=== PATIENT | female | born 2000 | race Asian ===

== ENCOUNTER 2018-03-06 00:26 | Emergency (ER) | payer BC ==
[2018-03-06] MEDS ORDERED: Famotidine TAB* 20 MG PO ONE (00:50)
[2018-03-06] MEDS ORDERED: Lidocaine 2% VISCOUS* 15 ML UDC PO ONE (00:50)
[2018-03-06] MEDS ORDERED: Al Hydrox/Mg Hydrox/Simet LIQ* 30 ML UDC PO ONE (00:50)
--- NOTE | 2018-03-06 00:50 | ED ---
Abdominal Pain/Female - HPI Summary HPI Summary: Pt is a 17 y/o F presenting to the ED with a chief complaint of sharp, constant LUQ pain right under her ribs onset around 2230 that worsens with deep breath, movement, and laughing. She states the pain was at an 8/10 and is now at 6/10, has not taken anything for it. She reports mild sob. Pt denies chest pain, coughing, headache, dizziness, bodyache, fever, nausea, vomiting, or recent illness. She came back to [place] from [place] via airplane on 02/25/18. Her last BM was today and it was normal. - History of Current Complaint Chief Complaint: EDShortnessOfBreath Stated Complaint: SOB Time Seen by Provider: 03/06/18 00:40 Hx Obtained From: Patient Hx Last Menstrual Period: 03/06/2018 ?: No - not on bc Onset/Duration: Sudden Onset, Lasting Hours, Still Present Timing: Constant Severity Initially: Moderate Severity Currently: Moderate Pain Intensity: 6 Pain Scale Used: 0-10 Numeric Location: Discrete At: LUQ Radiates: No Character: Sharp Aggravating Factor(s): Movement, Deep Breaths Alleviating Factor(s): Nothing Associated Signs and Symptoms: Negative: Fever, Cough, Chest Pain, Constipation , Urinary Symptoms, Nausea, Vomiting, Diarrhea Allergies/Adverse Reactions: Allergies Allergy/AdvReac Type Severity Reaction Status Date / Time No Known Allergies Allergy Verified 03/06/18 00:31 PMH/Surg Hx/FS Hx/Imm Hx Previously Healthy: Yes Endocrine/Hematology History: Denies: Hx Diabetes Respiratory History: Denies: Hx Asthma, Hx Chronic Obstructive Pulmonary Disease (COPD) Infectious Disease History: No Infectious Disease History: Denies: Traveled Outside the [place] in Last 30 Days - Family History Known Family History: Positive: Other - HLD Negative: Hypertension, Respiratory Disease - Social History Occupation: Student Lives: Dormitory/Roommates Alcohol Use: None Hx Substance Use: No Substance Use Type: Reports: None Hx Tobacco Use: No Smoking Status (MU): Never Smoked Tobacco Review of Systems Negative: Fever Negative: Chest Pain Positive: Shortness Of Breath. Negative: Cough Positive: Abdominal Pain. Negative: Vomiting, Nausea All Other Systems Reviewed And Are Negative: Yes Physical Exam - Summary Physical Exam Summary: Appearance: Well appearing, no pain distress Skin: warm, dry, reflects adequate perfusion Head/face: normal Eyes: EOMI, JOSESITO ENT: mucous membranes moist Neck: supple, non-tender Respiratory: CTA, breath sounds present Cardiovascular: RRR, pulses symmetrical Abdomen: mild LUQ discomfort Bowel Sounds: present Musculoskeletal: normal, strength/ROM intact Neuro: normal, sensory motor intact, A&Ox3 Triage Information Reviewed: Yes Vital Signs On Initial Exam: Initial Vitals Temp Pulse Resp BP Pulse Ox 97.7 F 68 16 132/81 97 03/06/18 00:28 03/06/18 00:28 03/06/18 00:28 03/06/18 00:03/06/18 00:28 Vital Signs Reviewed: Yes Diagnostics - Vital Signs Vital Signs Temp Pulse Resp BP Pulse Ox 03/06/18 00: 97.7 F 68 16 132/81 97 - Laboratory Lab Statement: Any lab studies that have been ordered have been reviewed, and results considered in the medical decision making process. - Radiology Abd x-ray Radiology Interpretation Completed By: ED Physician Summary of Radiographic Findings: Consistent with constipation. Pending official radiology report. Abdominal Pain Fem Course/Dx - Course Course Of Treatment: Nurse's notes reviewed. Patient with left upper quadrant discomfort not responding to GI therapy. X-ray was performed and patient had significant findings of constipation throughout the abdomen. She was treated here with Colace and will be given MiraLAX, Dulcolax suppository and an enema to use at home. She'll follow up with [facility]. - Diagnoses Differential Diagnosis: Positive: Other - Gastritis, esophagitis, constipation, splenomegaly, pancreatitis Provider Diagnoses: Constipation Discharge - Sign-Out/Discharge Documenting (check all that apply): Patient Departure - Discharge Plan Condition: Improved Disposition: HOME Prescriptions: Bisacodyl SUPP* [Dulcolax Supp*] 10 mg IL DAILY PRN #4 supp PRN Reason: Constipation Polyethylene Glycol 3350 BTL* [Miralax] 17 gm PO TID PRN #1 btl PRN Reason: Constipation Sodium Phosphate ADULT ENEMA* [Fleet Enema*] 1 enema IL DAILY #1 btl Patient Education Materials: Constipation (ED), High Fiber Diet (ED) Referrals: [facility] [Provider Group] Additional Instructions: Tylenol, ibuprofen as needed for cramping or pain. Drink lots of natural for juices such as apple or prune. MiraLAX up to 3 times a day. Exercise will help. Return if uncontrolled pain, fever, worse, new symptoms or other concerns. Follow-up with [facility]. - Billing Disposition and Condition Condition: IMPROVED Disposition: Home - Attestation Statements Document Initiated by Eitan: Yes Documenting Scribe: Marlene Rosas Provider For Whom Eitan is Documenting (Include Credential): Adalberto Davis MD. Scribe Attestation: Marlene Gibbs, scribed for Adalberto Davis MD. on 03/06/18 at 0406. Scribe Documentation Reviewed: Yes Provider Attestation: The documentation as recorded by the Marlene ellison accurately reflects the service I personally performed and the decisions made by , Adalberto Davis MD. Status of Scribe Document: Viewed
[2018-03-06] MEDS ORDERED: Docusate CAP* 100 MG PO ONE (01:42)
[2018-03-06] MEDS ORDERED: Naproxen TAB* 250 MG PO ONE (01:42)
[2018-03-06 01:58] VITALS: BP 119/77
== END 2018-03-06 01:58 | disposition home or self-care (01) ==
LOC: ED 00:26
DX: K59.00 Constipation, unspecified (principal)
CPT/HCPCS: 74018; 99282; A9270-GY

== ENCOUNTER 2018-06-15 21:19 | Emergency (ER) | payer BC ==
[2018-06-15] MEDS ORDERED: NS 0.9% 1000 ML** 1,000 ML IV.FLUID IV ONE (21:39)
[2018-06-15] MEDS ORDERED: Ibuprofen TAB* 600 MG PO ONE (21:40)
[2018-06-15 22:24] LABS: Rapid Strep Molecular Negative (Negative)
[2018-06-15 22:30] LABS: Influenza A Molecular NEGATIVE (Negative); Influenza B Molecular NEGATIVE (Negative)
--- NOTE | 2018-06-15 22:35 | ED ---
HPI Febrile Illness - HPI Summary HPI Summary: 18-year-old female presents with fever for the past 2 days. She states she has a swollen lymph node on right side. fever was as high as 104. symptoms started with a sore throat on Saturday that has since resolved and then she developed the fever and the swollen lymph node. Denies any cough. No headache or neck pain. No photophobia. No sinus congestion. No chest pain or shortness breath. No abdominal pain. No nausea vomiting diarrhea. No cough. Never had this before. Denies any sick contacts. Has no medical conditions. she took nytquil earlier. - History of Current Complaint Chief Complaint: EDFever Time Seen by Provider: 06/15/18 21:35 Hx Last Menstrual Period: 03/06/2018 Pain Intensity: 2 - Allergy/Home Medications Allergies/Adverse Reactions: Allergies Allergy/AdvReac Type Severity Reaction Status Date / Time No Known Allergies Allergy Verified 03/06/18 00:31 Home Medications: Home Medications Ibuprofen [Advil] 400 mg PO Q6HR PRN 06/15/18 [History Confirmed 06/15/18] PMH/Surg Hx/FS Hx/Imm Hx Endocrine/Hematology History: Denies: Hx Diabetes Respiratory History: Denies: Hx Asthma, Hx Chronic Obstructive Pulmonary Disease (COPD) Infectious Disease History: No Infectious Disease History: Denies: Traveled Outside the [place] in Last 30 Days - [place] - Family History Known Family History: Positive: Other - HLD Negative: Hypertension, Respiratory Disease - Social History Alcohol Use: None Hx Substance Use: No Substance Use Type: Reports: None Hx Tobacco Use: No Smoking Status (MU): Never Smoked Tobacco Review of Systems Positive: Fever Positive: Sore Throat Negative: Chest Pain Negative: Shortness Of Breath Negative: Abdominal Pain, Vomiting, Diarrhea, Nausea Negative: burning Negative: Headache All Other Systems Reviewed And Are Negative: Yes Physical Exam Triage Information Reviewed: Yes Vital Signs On Initial Exam: Initial Vitals Temp Pulse Resp BP Pulse Ox 101.6 F 112 16 130/85 96 06/15/18 21:20 06/15/18 21:20 06/15/18 21:20 06/15/18 21:20 06/15/18 21:20 Vital Signs Reviewed: Yes Appearance: Positive: Well-Appearing Skin: Positive: Warm, Dry Head/Face: Positive: Normal Head/Face Inspection Eyes: Positive: Normal, EOMI, JOSESITO, Conjunctiva Clear ENT: Positive: Pharynx normal, TMs normal Neck: Positive: Tenderness @ - right cervical lymph node, Enlarged Nodes @ - right cervical lymph node Respiratory/Lung Sounds: Positive: Clear to Auscultation, Breath Sounds Present Cardiovascular: Positive: Normal, RRR Abdomen Description: Positive: Nontender, Soft Bowel Sounds: Positive: Present Musculoskeletal: Positive: Normal Neurological: Positive: Normal Psychiatric: Positive: Normal Diagnostics - Vital Signs Vital Signs Temp Pulse Resp BP Pulse Ox 06/15/18 21:20 101.6 F 112 16 130/85 96 - Laboratory Lab Results: Lab Results 06/15/18 06/15/18 06/15/18 Range/Units 21:39 22:05 22:05 WBC Pending RBC Pending Hgb Pending Hct Pending MCV Pending MCH Pending MCHC Pending RDW Pending Plt Count Pending MPV Pending Neut % (Auto) Pending Lymph % (Auto) Pending Rock % (Auto) Pending Eos % (Auto) Pending Baso % (Auto) Pending Absolute Neuts (auto) Pending Absolute Lymphs (auto) Pending Absolute Monos (auto) Pending Absolute Eos (auto) Pending Absolute Basos (auto) Pending Absolute Nucleated RBC Pending Nucleated RBC % Pending Monoscreen Pending Influenza A (Rapid) Negative (Negative) Influenza B (Rapid) Negative (Negative) Group A Strep Rapid Negative (Negative) Result Diagrams: 06/15/18 21:39 06/15/18 21:39 Lab Statement: Any lab studies that have been ordered have been reviewed, and results considered in the medical decision making process. - Radiology chest Radiology Interpretation Completed By: ED Physician Summary of Radiographic Findings: no pnuemonia Re-Evaluation - Re-Evaluation First Eval Re-Evaluation Time: 23:12 Comment: discussed lab results, temp is now down Course/Dx - Course Course Of Treatment: 18-year-old female presents with fever for the past 2 days. She states she has a swollen lymph node on right side. she had sore throat on Saturday that has since resolved. Denies any cough. No headache or neck pain. No photophobia. No sinus congestion. No chest pain or shortness breath. No abdominal pain. No nausea vomiting diarrhea. No cough. Never had this before. Denies any sick contacts. Has no medical conditions. On exam has tender lymphadenopathy in the right. lungs clear to auscultation. Abdomen soft nontender. wbc 3.2. Flu negative. Strep negative. crp elevated. urine no infection. chest xray as read by me as normal. fever came down with ibuprofen and fluids. discussed could be viral syndrome. will add on augmentin with lymphadenopathy. told to follow up with [facility] to make sure symptoms otherwise will need further work up from there. patient understand and agrees with plan. - Febrile Illness Differential Diagnoses: Pneumonia, Pyelonephritis, Sepsis - Diagnoses Provider Diagnoses: Fever, Lymphadenopathy Discharge - Sign-Out/Discharge Documenting (check all that apply): Patient Departure Patient Received Moderate/Deep Sedation with Procedure: No - Discharge Plan Condition: Good Disposition: HOME Prescriptions: Amoxicillin/Clavulanate TAB* [Augmentin TAB 500 mg*] 500 mg PO BID #13 tab Patient Education Materials: Lymphadenopathy (ED) Referrals: No Primary Care Phys,[facility] [Primary Care Provider] - Additional Instructions: follow up with [facility] within 5 days Take augmentin twice a day for 7 days Take tyenlol or ibuprofen as needed for fever every 6 hours Return to ED if develop any new or worsening symptoms - Billing Disposition and Condition Condition: GOOD Disposition: Home
[2018-06-15 22:36] LABS: ABS Lymphocytes 0.3 10^3/ul (1.0-4.8); ABS Monocytes 0.4 10^3/ul (0-0.8); ABS Neutrophils 2.5 10^3/ul (1.5-7.7); Hematocrit 39 % (35-47); Hemoglobin 12.8 g/dL (12.0-16.0); Lymphocyte % 9.5 %; Mean Corpuscular HGB Conc 33 g/dL (31-36); Mean Corpuscular Hemoglobin 28 pg (27-31); Mean Corpuscular Volume 85 fL (80-97); Mean Platelet Volume 6.4 fL (7.4-10.4); Platelet Count 221 10^3/uL (150-450); Red Blood Count 4.59 10^6 /uL (3.70-4.87); Red Cell Distribution Width 14 % (10.5-15); Urine Appearance Cloudy; Urine Bilirubin Negative (Negative); Urine Blood Negative (Negative); Urine Color Yellow; Urine Glucose Negative (Negative); Urine Ketones 1+ (Negative); Urine Nitrite Negative (Negative); Urine Protein Negative (Negative); Urine Specific Gravity 1.012 (1.010-1.030); Urine Urobilinogen Negative (Negative); White Blood Count 3.2 10^3/uL (3.5-10.8)
[2018-06-15 22:41] LABS: INR 1.31 (0.82-1.09)
[2018-06-15 22:51] LABS: ALT 11 U/L (7-52); AST 14 U/L (13-39); Albumin 4.2 g/dL (3.2-5.2); Albumin/Globulin Ratio 1.7 (1-3); Alkaline Phosphatase 48 U/L (34-104); Anion Gap 11 mmol/L (2-11); BUN/Creatinine Ratio 9.1 (8-20); Blood Urea Nitrogen 9 mg/dL (6-24); C Reactive Protein 20.57 mg/L (<8.01); CO2 Carbon Dioxide 19 mmol/L (22-32); Calcium 8.7 mg/dL (8.6-10.3); Chloride 107 mmol/L (101-111); EGFR African American 86.5 (>60); EGFR Non-African American 71.5 (>60); Globulin 2.5 g/dL (2-4); Glucose 105 mg/dL (70-100); Potassium 3.8 mmol/L (3.5-5.0); Sodium 137 mmol/L (135-145); Total Protein 6.7 g/dL (6.4-8.9)
[2018-06-15 22:56] LABS: HCG Pregnancy < 0.60 mIU/mL
[2018-06-15] MEDS ORDERED: Acetaminophen TAB* 325 MG PO ONE (23:12)
[2018-06-15 23:19] VITALS: BP 119/68
[2018-06-15] MEDS ORDERED: Amoxicillin/Clavulanate TAB* 500 MG PO ONE (23:40)
[2018-06-17 15:31] LABS: EBV Capsid Ag IgG Ab Negative (Negative); EBV Capsid Ag IgM Ab Negative (Negative); Epstein-Barr Nuclear Antigen Negative (Negative)
== END 2018-06-16 | disposition home or self-care (01) ==
LOC: ED 21:19
DX: R50.9 Fever, unspecified (principal); R59.0 Localized enlarged lymph nodes
CPT/HCPCS: 36415; 71046; 80053; 81003; 83605; 84702; 85025; 85610; 86140; 86308; 86664; 86665; 87040; 87651; 96360; 96361; 99284; A9270-GY